=== PATIENT | female | born 1990 | race American Indian/Alaskan Native ===

== ENCOUNTER 2017-11-21 18:28 | Emergency (ER) | payer MEDICAID ==
[2017-11-21] MEDS ORDERED: ZOFRAN IM ONE (19:32)
[2017-11-21 19:54] LABS: Hematocrit 38.4 % (30.3-42.9); Hemoglobin 13.2 gm/dl (10.1-14.3); Mean Corpuscular HGB Conc 34 % (30-34); Mean Corpuscular Hemoglobin 30 pg (28-32); Mean Corpuscular Volume 87 fl (79-97); Platelet Count 228 K/mm3 (140-440); Red Blood Count 4.42 M/mm3 (3.65-5.03); Red Cell Distribution Width 13.7 % (13.2-15.2)
[2017-11-21 20:06] LABS: BUN/Creatinine Ratio 22; Blood Urea Nitrogen 11 mg/dL (7-17); Hemolysis Index 5
[2017-11-21 20:24] LABS: Basophils % (Manual) 0 % (0.0-1.8); Eosinophils % (Manual) 0 % (0.0-4.3); Total Cells Counted 100
[2017-11-21 20:25] LABS: Anisocytosis 1+
[2017-11-21] MEDS ORDERED: TYLENOL PO ONE (21:16)
--- NOTE | 2017-11-21 21:32 | Emergency Department Report ---
HPI - General Chief Complaint: Abdominal Pain Time Seen by Provider: 11/21/17 20:09 - HPI HPI: 27-year-old demented female presents to the emergency department with complaint of nausea and vomiting today while 10 weeks . She also complains of having some intermittent headaches over the past week that are generalized. She denies any vision change, slurred speech or any other neurological deficits. Patient says that she is currently being treated for a urinary tract infection. With this she is with one previous D&C. She goes to [facility] and is on vitamins. She has been taking Tylenol for her symptoms without any relief. No recent travel or sick contacts at home. ED Past Medical Hx - Past Medical History Previous Medical History?: No - Surgical History Past Surgical History?: No - Social History Smoking Status: Never Smoker Substance Use Type: None - Medications Home Medications: Home Medications Medication Instructions Recorded Confirmed Last Taken Type Ondansetron [Zofran Odt] 4 mg PO Q8H PRN #10 tab.rapdis 11/21/17 Unknown Rx Tablet 1 tab PO 11/21/17 Unknown History ED Review of Systems ROS: Stated complaint: VOMITING/BODY/PREG Other details as noted in HPI Comment: All other systems reviewed and negative Constitutional: denies: chills, fever Eyes: denies: eye pain, eye discharge, vision change ENT: denies: ear pain, throat pain Respiratory: denies: cough, shortness of breath, wheezing Cardiovascular: denies: chest pain, palpitations Gastrointestinal: nausea, vomiting Genitourinary: denies: hematuria, discharge Musculoskeletal: denies: back pain, joint swelling, arthralgia Skin: denies: rash, lesions Neurological: headache. denies: numbness Physical Exam - Physical Exam Vital Signs: Vital Signs 11/21/17 19:24 Temperature 98.4 F Pulse Rate 103 H Respiratory 18 Rate Blood Pressure 111/65 O2 Sat by Pulse 100 Oximetry Physical Exam: GENERAL: The patient is well-developed well-nourished. HENT: Normocephalic. Atraumatic. Patient has moist mucous membranes. EYES: Extraocular motions are intact. Pupils equal reactive to light bilaterally. NECK: Supple. Trachea is midline. CHEST/LUNGS: Clear to auscultation. There is no respiratory distress noted. HEART/CARDIOVASCULAR: Regular. There is no tachycardia. There is no murmur. ABDOMEN: Abdomen is soft, nontender. Patient has normal bowel sounds. There is no abdominal distention. SKIN: Skin is warm and dry. NEURO: The patient is awake, alert, and oriented. The patient is cooperative. The patient has no focal neurologic deficits. The patient has normal speech. MUSCULOSKELETAL: There is no tenderness or deformity. There is no limitation range of motion. There is no evidence of acute injury. ED Course Vital Signs 11/21/17 19:24 Temperature 98.4 F Pulse Rate 103 H Respiratory 18 Rate Blood Pressure 111/65 O2 Sat by Pulse 100 Oximetry ED Medical Decision Making - Lab Data Result diagrams: 11/21/17 19:36 11/21/17 19:36 - Radiology Data Radiology results: report reviewed PROCEDURE: US OB TRANSVAGINAL TECHNIQUE: Real-time transvaginal sonography of the uterus, placenta, amniotic fluid, adnexa, and fetus was performed with image documentation. Measurements were obtained to determine age/size. M-mode Doppler was used to document heartbeat. CPT 66308 HISTORY: Abdominal Pain COMPARISON: No prior studies are available for comparison. FINDINGS: CRL: 37.3mm, which corresponds to a gestational age of: 10weeks, 4 days. Yolk Sac: Normal. Embryonic Cardiac Activity: 182 beats per minute Gestational Sac: Normal. There is a subchorionic hematoma measuring 2.8 x 2.5 x 3.1 centimeters. Right Ovary: There is complex cyst measuring 19 millimeters. Left Ovary: There is a solid lesion measuring 15 millimeters. This could be hemorrhagic cyst. There is no ovarian torsion. Estimated delivery date: 06/15/2018 Comment: Complete anatomic survey at 18-20 weeks suggested. IMPRESSION: 1. Single living intrauterine gestation at approximately 10 weeks and 4 days 2. EDC by US 06/15/2018. Transcribed By: CO Dictated By: RADHA ALEXIS MD Electronically Authenticated By: RADHA ALEXIS MD Signed Date/Time: 11/21/17 8138 - Medical Decision Making Patient presents with some nausea, vomiting, headache while . Vital signs stable throughout her ED course. There is no hypertension, no proteinuria and low suspicion for preeclampsia. She does not have any tenderness to palpation of the abdomen and describes her discomfort more as a cramping sensation. I believe it is secondary to the nausea and vomiting but to be safe the patient was sent for a transvaginal/obstetrical ultrasound that shows a live intrauterine at 10 weeks and 4 days. Urinalysis does not show any urinary tract infection but does show some ketones. There is no labs are mostly unremarkable. Patient received some Zofran through triage and says that her nausea has resolved. She has eaten some chips and drink some water and has been able to keep it down. For this reason the patient appears safe for discharge home at this time. She'll be given a small amount of Zofran ODT, just in case, but has been encouraged to follow up with her [facility] service in the next few days. She will increase oral rehydration will return to the ER with any worsening of her symptoms or any acute distress. - Differential Diagnosis hyperemesis gravidarum, food poisoning, viral syndrome Critical Care Time: No Critical care attestation.: If time is entered above; I have spent that time in minutes in the direct care of this critically ill patient, excluding procedure time. ED Disposition Clinical Impression: Hyperemesis gravidarum Qualifiers: Weeks of gestation: 11 weeks Qualified Code(s): Z3A.11 - 11 weeks gestation of Disposition: DC-01 TO HOME OR SELFCARE Is pt being admited?: No Condition: Stable Instructions: (ED), Hyperemesis Gravidarum (ED) Additional Instructions: Please follow-up with your [facility] in the next few days. Increase your oral rehydration. Return to the emergency Department with any worsening of your symptoms or any acute distress. Prescriptions: Ondansetron [Zofran Odt] 4 mg PO Q8H PRN #10 tab.rapdis PRN Reason: Nausea Referrals: [facility] [Provider Group] - 3-5 Days Time of Disposition: 23:59
[2017-11-21 22:45] VITALS: BP 94/58
--- NOTE | 2017-11-21 22:48 | Ultrasound Report ---
FINAL REPORT PROCEDURE: US OB TRANSVAGINAL TECHNIQUE: Real-time transvaginal sonography of the uterus, placenta, amniotic fluid, adnexa, and fetus was performed with image documentation. Measurements were obtained to determine age/size. M-mode Doppler was used to document heartbeat. CPT 23606 HISTORY: Abdominal Pain COMPARISON: No prior studies are available for comparison. FINDINGS: CRL: 37.3mm, which corresponds to a gestational age of: 10weeks, 4 days. Yolk Sac: Normal. Embryonic Cardiac Activity: 182 beats per minute Gestational Sac: Normal. There is a subchorionic hematoma measuring 2.8 x 2.5 x 3.1 centimeters. Right Ovary: There is complex cyst measuring 19 millimeters. Left Ovary: There is a solid lesion measuring 15 millimeters. This could be hemorrhagic cyst. There is no ovarian torsion. Estimated delivery date: 06/15/2018 Comment: Complete anatomic survey at 18-20 weeks suggested. IMPRESSION: 1. Single living intrauterine gestation at approximately 10 weeks and 4 days 2. EDC by US 06/15/2018.
--- NOTE | 2017-11-21 22:49 | Ultrasound Report ---
FINAL REPORT PROCEDURE: US OB LESS THAN 14 WEEKS TECHNIQUE: Real-time transabdominal sonography of the uterus, placenta, amniotic fluid, adnexa, and fetus was performed with image documentation. Measurements were obtained to determine age/size. M-mode Doppler was used to document heartbeat. HISTORY: Abdominal Pain COMPARISON: No prior studies are available for comparison. FINDINGS: CRL: 37.3mm, which corresponds to a gestational age of: 10weeks, 4 days. Yolk Sac: Normal. Embryonic Cardiac Activity: 182 beats per minute Gestational Sac: Normal. There is a subchorionic hematoma measuring 2.8 x 2.5 x 3.1 centimeters. Right Ovary: There is complex cyst measuring 19 millimeters. Left Ovary: There is a solid lesion measuring 15 millimeters. This could be hemorrhagic cyst. There is no ovarian torsion. Estimated delivery date: 06/15/2018 Comment: Complete anatomic survey at 18-20 weeks suggested. IMPRESSION: 1. Single living intrauterine gestation at approximately 10 weeks and 4 days 2. EDC by US 06/15/2018.
[2017-11-21 23:48] LABS: Bacteria,Urine 1+ /HPF (Negative); Bilirubin,Urine NEG (Negative); Blood,Urine NEG (Negative); Color,Urine Yellow (Yellow); Mucus,Urine 3+ /HPF; Urobilinogen,Urine < 2.0 mg/dL (<2.0)
== END 2017-11-21 23:00 | disposition home or self-care (01) ==
LOC: ED 18:28
DX: O21.1 Hyperemesis gravidarum with metabolic disturbance (principal); Z3A.11 11 weeks gestation of pregnancy
CPT/HCPCS: 36415; 76801; 76817; 80048; 81001; 84702; 85007; 85025; 96372; 99284; J2405

== ENCOUNTER 2019-03-13 20:52 | Emergency (ER) | payer MEDICAID ==
[2019-03-13 21:00] VITALS: BP 109/68
--- NOTE | 2019-03-13 21:31 | Emergency Department Report ---
Blank Doc - Documentation Documentation: 28 y o female presents with generalized abd pain x 3 days denies v/d admits nausea, lightheadednesss, decreased appetite <CINDY CID - Last Filed: 03/13/19 21:31> - Documentation Documentation: A physician and/or other qualified medical personnel has recommended that the patient receive further examination and/or treatment beyond their Medical Screening Exam. The risks and benefits were explained. The patient was informed of their right to emergency care. Patient left before final disposition of their medical condition. This note has been generated by me, Dr. Adelso Charles III, MD, the [facility] [facility] for the emergency department. I have not seen this patient personally. <ADELSO CHARLES - Last Filed: 03/15/19 16:32>
[2019-03-13 21:47] LABS: Basophils % (Auto) 0.9 % (0.0-1.8); Eosinophils # (Auto) 0.1 K/mm3 (0.0-0.4); Eosinophils % (Auto) 1.3 % (0.0-4.3); Hematocrit 36.6 % (30.3-42.9); Hemoglobin 12.7 gm/dl (10.1-14.3); Lymphocytes # (Auto) 2.2 K/mm3 (1.2-5.4); Lymphocytes % (Auto) 49.6 % (13.4-35.0); Mean Corpuscular HGB Conc 35 % (30-34); Mean Corpuscular Volume 87 fl (79-97); Monocytes # (Auto) 0.4 K/mm3 (0.0-0.8); Platelet Count 263 K/mm3 (140-440)
[2019-03-13 22:14] LABS: BUN/Creatinine Ratio 19; Blood Urea Nitrogen 13 mg/dL (7-17); Calcium 9.5 mg/dL (8.4-10.2); Hemolysis Index 5
[2019-03-14 00:34] LABS: Bacteria,Urine 1+ /HPF (Negative); Bilirubin,Urine NEG (Negative); Blood,Urine NEG (Negative); Color,Urine Yellow (Yellow); Mucus,Urine 3+ /HPF; Protein,Urine <15 mg/dL mg/dL (Negative); Urobilinogen,Urine < 2.0 mg/dL (<2.0)
== END 2019-03-13 23:45 | disposition left against medical advice (07) ==
LOC: ED 20:52
DX: R10.9 Unspecified abdominal pain (principal); Z53.21 Procedure and treatment not carried out due to patient leaving prior to being seen by health care provider
CPT/HCPCS: 36415; 80048; 81001; 84703; 85025